=== PATIENT | female | born 1970 | race Caucasian/White ===

== ENCOUNTER 2024-08-12 21:51 | Observation (INO) | payer OTHER, SELFPAY ==
[2024-08-12 21:55] VITALS: BP 150/74; PULSE 73; RESP 18; TEMP 36.8; O2SAT 99; BMI 24.5
[2024-08-12 23:15] LABS: Absolute Lymphocyte Count 2.14 X10^3/uL (0.83-4.51); Absolute Neutrophil Count 11.4 X10^3/uL (2.0-7.7); Basophil# 0.04 X10^3/uL; Basophil% 0.3 % (0-1); Eosinophils% 0.7 % (0-5); Hemoglobin 12.9 g/dL (12.0-15.0); Lymphocyte # 2.14 X10^3/ul (0.83-4.51); Lymphocyte % 14.8 % (19-41); Mean Corp Hgb Conc 33.1 g/dL (32-36); Mean Corpuscular Hgb 29.5 pg (27.0-32.0); Monocyte# 0.74 X10^3/uL; Monocyte% 5.1 % (0-10); NRBC Flagged by Analyzer 0 % (0-5); Neutrophil # 11.38 X10^3/uL (2.7-7.7); Neutrophil % 78.7 % (47-70); Platelet Count 300 K/mm3 (150-450); RBC Distribution Width CV 12.3 % (11.6-14.6); RBC Distribution Width SD 40.5 fl (35.1-43.9); Red Blood Count 4.38 M/mm3 (4.2-5.4); White Blood Count 14.5 K/mm3 (4.4-11.0)
[2024-08-12 23:43] LABS: AST(SGOT) 17 U/L (15-37); Alanine Aminotransfer ALT/SGPT 40 U/L (13-56); Albumin, Serum 3.8 g/dL (3.2-5.0); Alkaline Phosphatase 92 U/L (45-117); Anion Gap 6 (5-15); BUN 18 mg/dL (7-18); BUN/Creat Ratio 20.3 RATIO (10-20); Calcium,Total 9.2 mg/dL (8.5-10.1); Chloride 106 mmol/L (98-107); Creatinine, Serum 0.89 mg/dL (0.55-1.02); EST Glomerular Filtration Rate 70 mL/min (>60); Est Glom Filt Rate - Afr Amer 85 mL/min (>60); Estimated Creatinine Clearance 60.95 ml/min; Glucose 135 mg/dL (74-106); Potassium 3.7 mmol/L (3.5-5.1); Protein, Total 7.8 g/dL (6.4-8.2); Sodium Level 141 mmol/L (136-145)
--- NOTE | 2024-08-12 23:48 | CT_ITS ---
PROCEDURE: ABDOMEN/PELVIS W IV CONT ONLY REASON FOR EXAM: 54-year-old female, right upper quadrant pain around the sides and back. TECHNIQUE: Abdomen and pelvis CT with intravenous contrast. No oral contrast. IV CONTRAST: Isovue-300 COMPARISON: None. FINDINGS: Lung bases: The heart is normal in size. No focal hepatic mass in the bibasilar lungs. Liver: The liver is normal in size without focal hepatic mass. The major portal veins are patent. Minimal biliary ductal dilation. Gallbladder: Cholelithiasis. The gallbladder is distended with mild gallbladder wall thickening. No pericholecystic fluid. Spleen: Unremarkable. Pancreas: Unremarkable. Adrenals: Unremarkable. Kidneys: No hydronephrosis or nephrolithiasis. Bladder: The urinary bladder is distended and unremarkable. Reproductive Organs: Unremarkable. Bowel: The bowel loops are normal in caliber. No ascites or pneumoperitoneum. Normal appendix. Lymph nodes: No suspicious lymph node enlargement. Vasculature: Major vascular structures are unremarkable. Bones: Unremarkable. CT/Abdomen/Pelvis W IV Cont ONLY IMPRESSION: Findings of acute cholecystitis. One or more dose reduction techniques were used (e.g., Automated exposure contr ol, adjustment of the mA and/or kV according to patient size, use of iterative reconstruction technique). Reading Location: [id number]
[2024-08-13] VITALS (18 sets, daily range): BP systolic 96–147; BP diastolic 62–86; PULSE 70–85; RESP 12–18; TEMP 36–36.9; O2SAT 95–99; BMI 23.8
[2024-08-13 00:03] LABS: Bacteria 0 SEEN /hpf (None Seen); Mucous, Urine 0 SEEN /hpf (<or=2+); Squamous Epithelial Cells - UA 0 SEEN /hpf (5-10); White Blood Cells 0 SEEN /hpf (0-5)
[2024-08-13 00:07] LABS: Color, Urine Yellow (Yellow); Glucose, Dipstick Normal (Normal); Ketone-Dipstick Negative (Negative); Leukocyte Esterase-Dipstick 25 /ul (Negative); Nitrite-Dipstick Negative (Negative); Occult Blood-Urine Negative /ul (Negative); Protein-Dipstick 15 mg/dl (Negative); Urine Bilirubin Dipstick Negative (Negative); Urine Clarity Clear (Clear); Urine Urobilinogen Normal (Normal)
[2024-08-13] MEDS: 0.9% Normal Saline (1000mL) 1,000 ML 999 ML IV (00:10)
[2024-08-13 00:17] LABS: Lipase 73 U/L (73-393); Troponin-I HS < 3 pg/mL (3.0-54.0)
[2024-08-13 00:43] LABS: Red Blood Cells-Urine 0 SEEN /hpf (0-5)
--- NOTE | 2024-08-13 02:19 | US_ITS ---
PROCEDURE: ABDOMEN LIMITED REASON FOR EXAM: Acute cholecystitis. COMPARISON: Comparison is made with prior ultrasound done earlier in the day. FINDINGS: Liver: Grossly normal size and echotexture. It measures 17.5 cm. Gallbladder: A solitary gallstone is seen measuring 1.8 cm. There is evidence of pericholecystic fluid. Mild thickening of the gallbladder wall at 4 mm. Common bile duct: Normal measuring 4 mm.. Pancreas: Visualized portions are sonographically unremarkable. Visualized portions of the right kidney are unremarkable. No right upper quadrant ascites. US/Abdomen Limited IMPRESSION: Solitary gallstone. Pericholecystic fluid. Mild gallbladder wall thickening. Findings in keeping with acute cholecystitis. Reading Location: [facility]
[2024-08-13] MEDS: Piperacil/Tazobactam 3.375 GM in 0.9% Normal Saline (50mL MB+) 50 ML IV ×2 (02:40→14:25)
--- NOTE | 2024-08-13 04:40 | EDS_ITS ---
HPI History of Present Illness Chief Complaint: Abd Pain Informant: patient and spouse/S.O. Narrative Narrative: Patient is a 54-year-old female with no significant past medical history. She states that today she ate dinner with her in-laws and . She states that they had chili. She reports that 1 to 2 hours after eating she noticed that she was developing upper abdominal pain. She states the pain then began to wrap around her abdomen towards her back and radiate up into her chest. She states that the pain was increasing in severity and she did not know if this could be related to her intestines or gallbladder or her heart and therefore she presents to the hospital for evaluation. Patient does state that after arriving to the ER and waiting for evaluation her pain has not resolved but has significantly improved. PFSH PFS Medical History Hx of ovarian cyst Home Medications ?Medication ?Instructions ?Recorded ?Last Taken ?Type NK 08/13/24 Unknown History Allergy/AdvReac Type Severity Reaction Status Date / Time amoxicillin Allergy PT UNSURE Verified 08/12/24 21:53 OF REACTION Sulfa (Sulfonamide Allergy Hives Verified 08/12/24 21:53 Antibiotics) Social History Smoking Status: Never smoker ROS ROS ED Constitutional Constitutional ED: Denies chills or fever(s) Eyes Eyes: Denies change in vision ENT ENT ED: Denies sore throat Cardiovascular Cardiovascular: Reports chest pain Respiratory/Chest Respiratory/Chest: Denies cough or dyspnea Gastrointestinal Gastrointestinal: Reports abdominal pain and nausea; Denies diarrhea or vomiting Genitourinary Genitourinary ED: Denies dysuria or hematuria Musculoskeletal Musculoskeletal: Reports back pain Integumentary Denies rash Neurologic Neurologic: Denies headache(s) Hematologic/Lymphatic Hematologic/Lymphatic: Denies easy bleeding or easy bruising EXAM Physical Exam Const Vital Signs: 08/12/24 21:55 08/13/24 01:00 08/13/24 03:00 Temperature 98.2 F Temperature Source Oral Pulse Rate 73 76 75 Respiratory Rate 18 18 16 Blood Pressure 150/74 H 125/76 H 146/62 H Blood Pressure Mean 99 92 90 Pulse Ox 99 96 97 Oxygen Delivery Method Room Air Room Air Room Air 08/13/24 05:00 08/13/24 07:00 Temperature Temperature Source Pulse Rate 72 74 Respiratory Rate 18 18 Blood Pressure 119/84 H 123/86 H Blood Pressure Mean 95 98 Pulse Ox 99 98 Oxygen Delivery Method Room Air Room Air Positive well nourished and well developed General Appearance ED: well developed; Negative for pallor HEENT Reports moist mucous membranes HEENT Narrative: No tongue or lip swelling no oral lesions no airway edema or compromise No secondary findings in the posterior pharynx to suggest infection Eyes PERRL and EOMs intact bilaterally General Eye ED: Negative for scleral icterus Neck supple Neck Narrative: No nuchal rigidity or meningeal signs Chest Wall palpation of chest normal Resp normal respiratory effort and clear to auscultation bilaterally Cardio regular rate and regular rhythm Rate: other Other Details: Heart is regular rate and rhythm without murmurs rubs or gallops Radial and carotid pulses are equal and symmetric GI non-distended and no masses GI Narrative: Abdomen is soft and nondistended with normal active bowel sounds Patient has pain on palpation in the right upper quadrant with slight voluntary guarding but overall negative Aguilar sign No pulsatile mass or fluid wave. Auscultation: normoactive bowel sounds Palpation: soft Back/Spine no CVA tenderness Extremity normal to inspection Neuro oriented x3, CN's II-XII intact bilaterally and no sensory deficits noted Sensorium / Orientation: alert Motor Exam: strength 5/5 throughout Psych mental status grossly normal Skin no rashes or lesions noted General Skin Exam: Negative for jaundice or pallor MDM MDM MDM Narrative Medical decision making narrative: Patient arrived to the ER slightly hypertensive but otherwise with stable vitals. She reported upper abdominal pain that began after eating and has since spontaneously improved. However with the upper abdominal pain after eating there is concern this could be biliary colic versus acute cholecystitis versus acute pancreatitis. With patient reporting pain radiating to the chest there is concern for acute coronary syndrome. Patient could also have atypical presentation for UTI/pyelonephritis or kidney stone. Secondary to this basic labs were obtained with urine sample. The urine showed no sign of infection going against UTI/pyelonephritis and no blood going against kidney stone. The patient's liver enzymes are normal going against biliary colic and lipase normal going against acute pancreatitis. However the patient's white count is elevated at 14.5 and with pain and guarding in the right upper quadrant she may have acute cholecystitis. Secondary to his a CT scan with IV contrast was obtained. CT scan showed gallstones with gallbladder wall thickening concerning for acute cholecystitis. Secondary to this read the case was discussed with general surgery on-call Dr. Todd. She recommends that as patient is still having pain on physical exam and has a white count that she be given a dose of Zosyn and held in the ER until an ultrasound can be obtained for a better image. The patient's right upper quadrant ultrasound did reveal a solitary gallstone at 1.8 cm with this there is surrounding pericholecystic fluid and mild dilation of the gallbladder duct at 4 mm and these findings correlate with the CT scan and show changes concerning for acute cholecystitis. At rest the patient reports a pain value of 1-2 but she does have voluntary guarding with palpation in the right upper quadrant. Secondary to the ultrasound showing changes consistent with acute cholecystitis Dr. Todd was contacted once again and she agrees that with persistent pain and CT and ultrasound findings showing acute cholecystitis as well as her leukocytosis that she be admitted to her service for further care History & Record Review Discussion w/independent historian: Patient and Significant other Lab Data Attestation: I reviewed the patient's lab results. Labs: Laboratory Results - last 24 hr 08/12/24 08/13/24 23:10 00:01 WBC 14.5 H RBC 4.38 Hgb 12.9 Hct 39.0 MCV 89.0 MCH 29.5 MCHC 33.1 RDW Std Deviation 40.5 RDW Coeff of Jody 12.3 Plt Count 300 MPV 10.0 Immature Gran % (Auto) 0.400 Neut % (Auto) 78.7 H Lymph % (Auto) 14.8 L [place] % (Auto) 5.1 Eos % (Auto) 0.7 Baso % (Auto) 0.3 Absolute Neuts (auto) 11.4 H Absolute Lymphs (auto) 2.14 Nucleated RBC % 0 Sodium 141 Potassium 3.7 Chloride 106 Carbon Dioxide 29.0 Anion Gap 6 BUN 18 Creatinine 0.89 Estim Creat Clear Calc 60.95 Est GFR (MDRD) Af Amer 85 Est GFR (MDRD) Non-Af 70 BUN/Creatinine Ratio 20.3 H Glucose 135 H Calcium 9.2 Total Bilirubin 0.20 AST 17 ALT 40 Alkaline Phosphatase 92 Troponin I High Sens < 3 L Total Protein 7.8 Albumin 3.8 Globulin 4.0 Albumin/Globulin Ratio 1.0 Lipase 73 Urine Color Yellow Urine Clarity Clear Urine pH 6.0 Ur Specific [place] 1.020 Urine Protein 15 H Urine Glucose (UA) Normal Urine Ketones Negative Urine Occult Blood Negative Urine Nitrite Negative Urine Bilirubin Negative Urine Urobilinogen Normal Ur Leukocyte Esterase 25 H Urine RBC 0 SEEN Urine WBC 0 SEEN Ur Squamous Epith Cells 0 SEEN Urine Bacteria 0 SEEN Urine Mucus 0 SEEN Radiography Diagnostic Testing: Clinical Impression(s) from Imaging Studies Abdomen/Pelvis CT 08/12/24 23:48 IMPRESSION: Findings of acute cholecystitis. One or more dose reduction techniques were used (e.g., Automated exposure control, adjustment of the mA and/or kV according to patient size, use of iterative reconstruction technique). Reading Location: [id number] Abdomen Ultrasound 08/13/24 02:19 IMPRESSION: Solitary gallstone. Pericholecystic fluid. Mild gallbladder wall thickening. Findings in keeping with acute cholecystitis. Reading Location: [id number] Management Discussion w/another healthcare provider: Change Management Facilitator Discharge Plan Triage Chief Complaint: Abd Pain ED Provider: James Melissa Dx/Rx/DC Orders Clinical Impression: Cholelithiasis, Leukocytosis, Acute cholecystitis Prescriptions: No Action NK Primary Care Provider: Care Physician,No Primary Referrals: Care Physician,No Primary [Primary Care Provider] - Print Language: Macedonian Disposition Disposition: [facility]
--- NOTE | 2024-08-13 09:02 | HP.PCM_ITS ---
HPI - General General Date of Admission: 08/13/24 Date of Service: 08/13/24 Chief Complaint: Right upper quadrant pain HPI Narrative LESLYE PINEDA, is a 54 F who presents with a 1 day acute onset of abdominal pain. Patient was at dinner last night with her in-laws and her . She had a bowel of chili. She notes fullness and bloating right after eating along with some pain. She noted a little nausea associated with the abdominal pain, which intensified approximately 1 hour later. She notes no other sick contacts or no one else in her green party that became sick from the food at the restaurant. She notes the pain continued to become intense and localized more in the epigastric and right upper quadrant and into her back. She was questioning if this was a heart attack. Patient notes her mother and brother have both had their gallbladder removed. She denies any previous gallbladder issues. She notes only abdominal surgery was an ovarian cyst removal. She denies any cardiac or pulmonary history. She denies any side effects or complications from anesthesia noted. CT scan of the ab/pel was obtained and demonstrated acute cholecystitis. RUQ u/s demonstrated solitary gallstone. Pericholecystic fluid. Mild gallbladder wall thickening. Findings keeping with acute cholecystitis. Labs notable for WBC 14.5 with left shift of 78.7. Remaining labs are unremarkable. [facility] Medical History Hx of ovarian cyst Home Medications ?Medication ?Instructions ?Recorded ?Last Taken ?Type NK 08/13/24 Unknown History Allergy/AdvReac Type Severity Reaction Status Date / Time amoxicillin Allergy PT UNSURE Verified 08/12/24 21:53 OF REACTION Sulfa (Sulfonamide Allergy Hives Verified 08/12/24 21:53 Antibiotics) Social History Smoking Status: Never smoker ROS Constitutional Constitutional: Reports systems reviewed and no addt'l complaints, except as documented Eyes Eyes: Reports systems reviewed and no addt'l complaints, except as documented ENT HEENT: Reports systems reviewed and no addt'l complaints, except as documented Cardiovascular Cardiovascular: Reports systems reviewed and no addt'l complaints, except as documented Respiratory/Chest Respiratory/Chest: Reports systems reviewed and no addt'l complaints, except as documented Gastrointestinal Gastrointestinal: Reports systems reviewed and no addt'l complaints, except as documented Genitourinary Genitourinary: Reports systems reviewed and no addt'l complaints, except as documented Musculoskeletal Musculoskeletal: Reports systems reviewed and no addt'l complaints, except as documented Integumentary Integumentary: Reports systems reviewed and no addt'l complaints, except as documented Neurologic Neurologic: Reports systems reviewed and no addt'l complaints, except as documented Psychiatric Psychiatric: Reports systems reviewed and no addt'l complaints, except as documented Endocrine Endocrinology: Reports systems reviewed and no addt'l complaints, except as documented Hematologic/Lymphatic Hematologic/Lymphatic: Reports systems reviewed and no addt'l complaints, except as documented Allergic/Immunologic Allergic/Immunologic: Reports systems reviewed and no addt'l complaints, except as documented Vital Signs Vital Signs Vital Signs: 08/12/24 21:55 08/13/24 01:00 08/13/24 03:00 Temperature 98.2 F Temperature Source Oral Pulse Rate 73 76 75 Respiratory Rate 18 18 16 Blood Pressure 150/74 H 125/76 H 146/62 H Blood Pressure Mean 99 92 90 Pulse Ox 99 96 97 Oxygen Delivery Method Room Air Room Air Room Air 08/13/24 05:00 08/13/24 07:00 08/13/24 07:56 Temperature 98.2 F Temperature Source Pulse Rate 72 74 78 Respiratory Rate 18 18 12 Blood Pressure 119/84 H 123/86 H 123/86 H Blood Pressure Mean 95 98 98 Pulse Ox 99 98 99 Oxygen Delivery Method Room Air Room Air 08/13/24 08:46 Temperature Temperature Source Pulse Rate 85 Respiratory Rate Blood Pressure 147/62 H Blood Pressure Mean 90 Pulse Ox 95 Oxygen Delivery Method Room Air Weight Weight: 143 lb 4.8 oz Body Mass Index (BMI) 24.5 Physical Exam Const alert, oriented x3 and no apparent distress HEENT normocephalic and head/scalp atraumatic Eyes PERRL Neck full ROM Resp normal respiratory effort and clear to auscultation bilaterally Cardio regular rate and regular rhythm GI GI Narrative: Abdomen- soft, slight tenderness in the RUQ. Negative Aguilar's sign no CVA tenderness Back/Spine no CVA tenderness Extremity normal to inspection Skin no rashes or lesions noted Neuro no focal motor deficits and no sensory deficits noted Psych mental status grossly normal, thought process normal, cooperative, affect normal and speech normal Results Lab / Micro Data 08/12/24 23:10 08/12/24 23:10 Labs: Laboratory Results - last 24 hr 08/12/24 23:10: WBC 14.5 H, RBC 4.38, Hgb 12.9, Hct 39.0, MCV 89.0, MCH 29.5, MCHC 33.1, RDW Std Deviation 40.5, RDW Coeff of Jody 12.3, Plt Count 300, MPV 10.0, Immature Gran % (Auto) 0.400, Neut % (Auto) 78.7 H, Lymph % (Auto) 14.8 L, [place] % (Auto) 5.1, Eos % (Auto) 0.7, Baso % (Auto) 0.3, Absolute Neuts (auto) 11.4 H, Absolute Lymphs (auto) 2.14, Nucleated RBC % 0, Sodium 141, Potassium 3.7, Chloride 106, Carbon Dioxide 29.0, Anion Gap 6, BUN 18, Creatinine 0.89, Estim Creat Clear Calc 60.95, Est GFR (MDRD) Af Amer 85, Est GFR (MDRD) Non-Af 70, BUN/Creatinine Ratio 20.3 H, Glucose 135 H, Calcium 9.2, Total Bilirubin 0.20, AST 17, ALT 40, Alkaline Phosphatase 92, Troponin I High Sens < 3 L, Total Protein 7.8, Albumin 3.8, Globulin 4.0, Albumin/Globulin Ratio 1.0, Lipase 73 08/13/24 00:01: Urine Color Yellow, Urine Clarity Clear, Urine pH 6.0, Ur Specific [place] 1.020, Urine Protein 15 H, Urine Glucose (UA) Normal, Urine Ketones Negative, Urine Occult Blood Negative, Urine Nitrite Negative, Urine Bilirubin Negative, Urine Urobilinogen Normal, Ur Leukocyte Esterase 25 H, Urine RBC 0 SEEN, Urine WBC 0 SEEN, Ur Squamous Epith Cells 0 SEEN, Urine Bacteria 0 SEEN, Urine Mucus 0 SEEN Imaging Radiology Impression Abdomen/Pelvis CT 08/12/24 23:48 IMPRESSION: Findings of acute cholecystitis. One or more dose reduction techniques were used (e.g., Automated exposure control, adjustment of the mA and/or kV according to patient size, use of iterative reconstruction technique). Reading Location: [facility] Abdomen Ultrasound 08/13/24 02:19 IMPRESSION: Solitary gallstone. Pericholecystic fluid. Mild gallbladder wall thickening. Findings in keeping with acute cholecystitis. Reading Location: [id number] Assessment & Plan Assessment/Plan (1) Acute cholecystitis: (2) Leukocytosis: (3) Cholelithiasis: PLAN: Plan I am seeing this patient in conjunction with Dr. Todd. She will independently evaluate this patient. Patient presents with 1 day history of acute onset of abdominal pain, which eventually localized in the RUQ and into the back. She has an elevated WBC. Her RUQ u/s does demonstrate acute cholecystitis. We will plan to admit patient to the floor for observation, place NPO, obtain a pre-op EKG. Dr. Todd will plan to perform a laparoscopic cholecystectomy with intraoperative cholangiogram. Procedure details, risks and benefits have been explained. Patient and her have had the opportunity to ask and have questions answered. Patient verbally understands and agrees with the plan. Thank you for allowing us to participate in this patient's care. Charges/Coding Visit Charges OBSV E&M: 12846 Observ/hosp same date L2
--- NOTE | 2024-08-13 09:07 | RAD_ITS ---
PROCEDURE: CHOLANGIOGRAM/ O R,INITIAL REASON FOR EXAM: Laparoscopic cholecystectomy. TECHNIQUE: An intraoperative cholangiogram was performed by the surgeon. Imaging was provided. COMPARISON: None FINDINGS: The visualized intra and extrahepatic biliary ducts are unremarkable. No evidence of retained calculus. Free flow of contrast into the duodenum. RAD/Cholangiogram/ O R,Initial IMPRESSION: Unremarkable intra operative cholangiogram. Reading Location: [id number]
[2024-08-13] MEDS: 0.9% Normal Saline (1000mL) 1,000 ML 100 ML IV (10:24)
[2024-08-13] MEDS: 0.9% Saline Lock 10 ML Syringe IV (10:25)
--- NOTE | 2024-08-13 10:54 | EKG12_ITS ---
Test Reason : PREOP Blood Pressure : */* mmHG Vent. Rate : 68 BPM Atrial Rate : 68 BPM P-R Int : 104 ms QRS Dur : 72 ms QT Int : 408 ms P-R-T Axes : 77 34 51 degrees QTcB Int : 433 ms Sinus rhythm with short WA Nonspecific ST abnormality MINOR Borderline Reconfirmed by Hamzah Cordova ([id number]), makeup editor KIMBERLEE BENNETT ([id number]) on 08/17/2024 10:41:22 AM Referred By: KARISSA Confirmed By: Hamzah Cordova
--- NOTE | 2024-08-13 12:39 | PRE.ANES_ITS ---
ASA Classification* ASA Classification ASA Classification: 2 Assessment & Plan Anesthesia* Anesthesia Assessment Anesthesia Assessment: Discussed sedation and/or anesthesia options, risks, benefits, and alternatives with patient/parents/legal guardian/POA. Questions invited. The patient/parents/legal guardian/POA seems to understand and agrees to proceed with anesthesia plan. Reviewed the physical assessment, medical history, allergy history and patient home medications list prior to surgery/procedure/anesthetic and documented any changes. Performed airway and anesthesia risk assessments. Anesthesia Type Anesthesia Type: General History Source History Obtained from:: Patient, Chart and Significant Other Anesthesia Focused Assessment* Temperature: 98.1 F Pulse Rate: 73 Blood Pressure: 120/62 Respiratory Rate: 16 Pulse Ox: 99 Oxygen Delivery Method: Room Air Airway Assessment Mouth opens: >3 cm Mallampati Score: II Teeth Condition: Intact, Caps/Crowns and Chipped/Broken (chipped lower incisor) Neck Range of motion (ROM): Full ROM Focused Labs Anesthesia Preop lab: CBC WBC 14.5 K/mm3 (4.4-11.0) H 08/12/24 23:10 5 RBC 4.38 M/mm3 (4.2-5.4) 08/12/24 23:10 08/12/24 Hgb 12.9 g/dL (12.0-15.0) 08/12/24 23:10 08/12/24 Hct 39.0 % (37-47) 08/12/24 23:10 08/12/24 Plt Count 300 K/mm3 (150-450) 08/12/24 23:10 08/12/24 CHEMISTRY Potassium 3.7 mmol/L (3.5-5.1) 08/12/24 23:10 08/12/24 Sodium 141 mmol/L (136-145) 08/12/24 23:10 08/12/24 BUN 18 mg/dL (7-18) 08/12/24 23:10 08/12/24 Creatinine 0.89 mg/dL (0.55-1.02) 08/12/24 23:10 08/12/24 Glucose 135 mg/dL (74-106) H 08/12/24 23:10 08/12/24 COAG Pre-Assessment Diagnosis/Proposed Procedure Planned Operative Procedure(s): lap ethan Anesthesia History Anesthesia History - business development agent: Anesthesia History - business development agent Hx Hospitalization Any Problems With Anesthesia No 08/13/24 11:37 Cholinesterase deficiency No 08/13/24 11:37 You/Your Family Experience No 08/13/24 11:37 fever (hyperthermia) with Relationship Recent Exposure to Contagious No 08/13/24 11:37 Disease Does patient have nerve No 08/13/24 11:37 stimulator Patient instructed to have device shut off --Does patient have Pacemaker No 08/13/24 11:37 or ICD? When Was Last Pacemaker Check QUESTION #4 FULL TEXT: You/Your Family Experience fever (hyperthermia) with Anesthesia Last Oral Intake Last Oral intake: Last Oral Intake NPO since 00:00 08/13/24 11:37 Meds taken in AM with sips of No 08/13/24 11:37 water? Meds patient instructed to take am of surgery PONV PONV - business development agent: PONV - business development agent Female HX of Motion Sickness HX of N/V After Surgery Non-Smoker Duration of Surgery greater than 60 minutes Number of Risk Factors PONV Score Height & Weight Height & Weight: Anesthesia: Height & Weight Height 5 ft 4 in 08/13/24 11:37 Weight: 63.049 kg 08/13/24 11:37 Body Mass Index (BMI) 23.8 08/13/24 11:37 Respiratory Assessment Respiratory Assessment - business development agent: Respiratory Tract Infection Hx - business development agent Hx Respiratory Tract Infection No 08/13/24 11:37 STOP Sleep Apnea STOP Sleep Apnea - business development agent: STOP Sleep Apnea - business development agent Hx Hypertension No 08/13/24 09:57 Hx Sleep Apnea No 08/13/24 09:57 CPAP BIPAP Do you snore loudly (louder No 08/13/24 09:57 than talking or can be heard Do you often feel tired/ No 08/13/24 09:57 fatigued/ sleepy during daytime? Has anyone observed you stop No 08/13/24 09:57 breathing during sleep? STOP Results Negative 08/13/24 09:57 QUESTION #5 FULL TEXT : Do you snore loudly (louder than talking or can be heard through closed doors)? Tobacco Use History Tobacco Use History - business development agent: Tobacco Use History - business development agent Tobacco Use Smoking Status Never smoker 08/13/24 09:57 Hx Tobacco Use No 08/13/24 09:57 Years Smoking Packs Smoked per Day Smoking Cessation Date was within the last 15 years Hx Smoking Cessation Date Hx Smoking Cessation Counseling Hematologic Medial History Hematologic Hx - business development agent: Hematologic Medical Hx - net developer architect Hx of Blood Transfusion No 08/13/24 09:57 Hx of Transfusion in last 3 No 08/13/24 09:57 Months Date of Last Transfusion (if within last 3 months) Ever experience any problems No 08/13/24 09:57 with transfusion(s)? Specify any problems Hx of Preganancy in last 3 No 08/13/24 09:57 Months Nurse Filling Out Transfusion EBOOTHE 08/13/24 09:57 & Questions: Date: 08/13/24 08/13/24 09:57 Time: 10:00 08/13/24 09:57 Patient unable to answer at this time (ie. confused, unrespo /Reproduction History /Reproductive History - business development agent: /Reproductive Hx- business development agent Hx Now No 08/13/24 11:37 Gestational Age (in weeks): EDC: Hx Hx Para Hx Section SAB No 08/13/24 11:37 Active Medications Active Medications: Current Medications Generic Name Dose Route Start Last Admin Trade Name Freq PRN Reason Stop Dose Admin Acetaminophen 650 mg 08/13/24 09:43 Acetaminophen 325 Mg Tablet PO Q6H PRN PRN Pain 1-10 Or Fever >100.7 Docusate Sodium 100 mg 08/13/24 10:00 08/13/24 10:09 Docusate Sodium 100 Mg Capsule PO Not Given DAILY NAN Sodium Chloride 1,000 mls @ 100 mls/hr 08/13/24 09:43 08/13/24 12:10 IV 08/14/24 05:42 0 mls/hr .Q10H NAN Infusion Protocol Piperacillin Sod/Tazobactam 50 mls @ 12.5 mls/hr 08/13/24 14:00 Sod 3.375 gm/ Sodium Chloride IV Q8 NAN Sodium Chloride 100 mls @ 15 mls/hr 08/13/24 10:07 IV .Q6H40M PRN Saline Flush Sodium Chloride 100 mls @ 15 mls/hr 08/13/24 10:07 IV .Q6H40M PRN Additional IVPB Infusion Morphine Sulfate 2 - 4 mg 08/13/24 09:43 Morphine 2 Mg/Ml Syringe IV Q3H PRN PRN Pain Score 6-10 Morphine Sulfate 2 - 4 mg 08/13/24 09:50 Morphine 4 Mg/Ml Syringe IV Q3H PRN PRN Pain Score 6-10 Ondansetron HCl 4 mg 08/13/24 09:43 Ondansetron 4 Mg/2 Ml Vial IV Q8H PRN PRN NAUSEA/VOMITING Oxycodone HCl 5 mg 08/13/24 09:43 Oxycodone 5 Mg Tablet PO Q4H PRN PRN Pain Score 4-10 Sodium Chloride 10 - 40 ml 08/13/24 10:07 08/13/24 10:25 0.9% Saline Lock 10 Ml Syringe IV 10 ml UD PRN Administration SALINE FLUSH PFSH Medical History Hx of ovarian cyst Home Medications ?Medication ?Instructions ?Recorded ?Last Taken ?Type NK 08/13/24 Unknown History Allergy/AdvReac Type Severity Reaction Status Date / Time amoxicillin Allergy PT UNSURE Verified 08/12/24 21:53 OF REACTION Sulfa (Sulfonamide Allergy Hives Verified 08/12/24 21:53 Antibiotics) Social History Smoking Status: Never smoker Review of Systems (Anesthesia) ROS Narrative System reviewed and no additional complaints, except as documented.
[2024-08-13] MEDS: 0.9% Normal Saline (1000mL) 1,000 ML 15 ML IV (12:50)
--- NOTE | 2024-08-13 14:30 | GALL_PTH ---
PATIENT: LESLYE PINEDA LOC: MS3 U#:[id number] AGE/SX: 54/F ROOM: [facility] [place] RE08/13/[address]: Dr. Jenniffer Todd MD : 1970 BED: 1 DIS: 08/14/2024 SPEC #: [id number] RECD: 08/14/24 10:08 STATUS: NICK JOSE CARLOS #: [id number] WALDO: 08/13/24 14:[address]: Jenniffer Todd DEPT: SURGICAL PATHOLOGY RECD BY: Jeane Morales ENTERED: 08/14/24 10:37 SP TYPE: DANIEL ESCOBAR DR: No Primary Care Phys Tissues: Gallbladder, NOS Procedures: Special Stain Group I Surgery Specimen Level III Alcian Blue/PAS (control) HEADER OPERATION: Laparoscopic, cholecystectomy with IOC PRE-OP DIAGNOSIS: Acute cholecystitis, leukocytosis, cholelithiasis TISSUE SUBMITTED: Gallbladder MICROSCOPIC DIAGNOSIS Gallbladder, cholecystectomy: Chronic cholecystitis and cholelithiasis. Focal intestinal metaplasia (goblet cell metaplasia). See comment. 08/17/2024 COMMENT Alcian blue/PAS stain with matched control is used in the evaluation of the specimen. MICROSCOPIC DESCRIPTION Slides are reviewed. GROSS DESCRIPTION Received is one container labeled with the patient's name and designated gallbladder. The specimen consists of a gallbladder measuring 8.5 cm in length and up to 4 cm in diameter. The external surface is pink-dominguez, smooth and glistening for the most part. Focally it is granular, hemorrhagic and contains cautery artifact. The gallbladder contains green-yellow bile and two stones, one yellow mulberry measuring 0.2cm in greatest dimension and second ovoid green measuring 2 x 1.2 x 1cm. The mucosa is bile-stained and without any mass lesions. The gallbladder wall measures up to 0.2 cm in thickness. Music Typographer sections from the gallbladder and the cystic duct are submitted in one cassette. / SJ: 08/14/2024 TC:3 CPT: 44016,52117
[2024-08-13] MEDS: Bupivacaine Mpf 0.5% 30 ML VIAL (15:20)
--- NOTE | 2024-08-13 15:21 | OP.PCM_ITS ---
Operative Report (Standard) Operative Information Date of Procedure: 08/13/24 Pre-Operative Diagnosis: Acute cholecystitis, cholelithiasis Post-Operative Diagnosis: Same Surgery/Procedure Performed: Laparoscopic cholecystectomy with cholangiograms local bulk driver: Yes Student Accounts Coordinator: Robert Chakraborty Tasks completed by corporate law assistant: Opening & closing and Retracting Type of Anesthesia: General/Supplemental RN Documented Start/Stop Times: Operation Date: 08/13/24 14:30 Case Time Into Pre-Op 08/13/24 12:18 Out of Pre-Op 08/13/24 14:14 Anesthesia Start 08/13/24 14:16 Into Room 08/13/24 14:16 Procedure Start 08/13/24 14:26 Procedure End 08/13/24 15:24 Procedure Start Time: 14: Procedure Stop Time: 15:24 Select all DRAINS/GRAFTS/IMPLANTS that apply: None Special Medications: Zosyn 3.35 g IV every 8 hours for acute cholecystitis on the floor Estimated Blood Loss: <20 cc Specimen collected: Yes Description of specimen(s) removed: gallbladder Description of surgery: Indications: this is a 54 year-old female who developed abdominal pain and on workup was found to have cholelithiasis, acute cholecystitis, with a normal common bile duct. Laparoscopic cholecystectomy was elected. Description procedure: The patient was placed on operating table in supine position. A timeout was completed verifying correct patient, procedure, site, position and special equipment prior to beginning procedure. General Anesthesia was induced. The abdomen was prepped and draped in usual sterile fashion. An incision was made in the natural skin line above the umbilicus. The fascia was elevated and incised. The peritoneum was elevated and incised. Entry into the peritoneum was confirmed visually and no bowel was noted in the vicinity of the incision. Tobar trocar was placed. The abdomen was insufflated with carbon dioxide to a pressure of 12-15 mmHg. Patient tolerated insufflation well. The laparoscope was then inserted and abdomen inspected. No injuries from initial trocar placement were noted. Additional trochars were then inserted in the following locations 5 mm trocar in the epigastrium and 2 more 5 mm trochars along the right costal margin. The abdomen was inspected no abnormalities were found. The table is placed in reverse Trendelenburg position with the right side up. The dome of the gallbladder was grasped with atraumatic grasper passed through the lateral port and retracted over the dome of the liver. Infundibulum was then grasped with atraumatic grasper through the midclavicular port and retracted to the right lower quadrant. This maneuver exposed Calot's triangle. The peritoneum overlying the gallbladder infundibulum was then incised and cystic duct and artery identified and circumferentially dissected. Weinstein catheter was used for cholangiograms. The cholangiogram showed good filling of the common bile duct into the duodenum with no filling defects, good filling of the right and left bile ducts as well. The cystic duct and artery were then doubly clipped and divided close to the gallbladder. The gallbladder then dissected from its peritoneal attachments by electrocautery. Hemostasis was checked and the gallbladder and contained stones were removed using the endoscopic retrieval bag through the umbilical port. The gallbladder is passed off table as specimen. The gallbladder fossa was irrigated with saline and hemostasis obtained. There is no evidence of bleeding from the gallbladder fossa or cystic artery leakage of bile from the cystic duct stump. Secondary trochars removed under direct vision. No bleeding was noted the trocar sites. The laparoscope was withdrawn and umbilical trocar removed. The abdomen was allowed to collapse. The fascia of the 12 mm trocar was closed with a [id number] 0 Vicryl suture. The skin was closed with sutures of 4-0 Monocryl and Steri-Strips. The patient was extubated. The patient tolerated procedure well and was taken to the postanesthesia care unit in stable condition. Surgical Findings: See operative report?normal cholangiograms Complications Complications: No
--- NOTE | 2024-08-13 15:25 | DCINST_ITS ---
Discharge Instructions Diet Discharge Diet: Light diet - advance as tolerated Activity Discharge Activity: May Not Drive (while taking narcotic pain medications.) May shower in (days): 1 Lifting Restrictions: no lifting >20 lbs x 2 wks, no strenuous exercise for 4 wks Dressing / Incision Call your doctor if your incision/area has: Continuous Slow Oozing, Sudden Increased Bleeding, Increased Pain/ Swelling, Increased Redness, Foul Smelling Discharge and Swelling at the incision site Call your doctor if you observe: Fever of 101 or Higher Remove Dressing in: 2 days Cleanse incision/area with: Soap & Water Additional Dressing/Incision Instructions:: Steri-Strips will fall off in 7 to 10 days, if they do not fall off okay to remove after 10 days. Follow Up Care Please Follow Up With: Jenniffer Todd MD When: Call the office for a follow-up appointment 2 weeks; after 5 PM and on the weekends call [phone] with any concerns. Test Results: Test results from this visit will be discussed in further detail at your follow- up appointment, if applicable. Discharge Plan Admission Admit Date/Time: 08/13/24 08:47 Attending Provider: Jenniffer Todd Primary Care Provider: Jefe Physician,Rosalee Primary Discharge Orders/Prescriptions Prescriptions: New oxycodone 5 mg capsule 5 mg PO Q6H PRN (Reason: pain) 3 Days Qty: 10 0RF Referrals / Follow Up: Care PhysicianRosalee Primary [Primary Care Provider] - Disposition Disposition (needs filled in before D/C Order can be placed): Home, Self Care
--- NOTE | 2024-08-13 15:33 | PCM.POST.ANE ---
Anesthesia: Postop Eval I Current Vital Signs Temperature: 96.8 F Pulse Rate: 80 Blood Pressure: 98/64 Respiratory Rate: 18 Pulse Ox: 99 Oxygen Delivery Method: Room Air Assessment Airway patent: Yes Spontaneous unlabored respirations: Yes Mental status: Awake nausea: No Vomiting: No Anesthesia Complication: No Fluid Hydration Crystalloid volume administer (ml): 800 Total IV fluid infused: 800 Progress Note Anesthesia document: Postop Eval 1 completed: Yes
--- NOTE | 2024-08-13 16:26 | POSTOPAN2_ITS ---
Anesthesia Postop Eval I Sum Postop Eval Completion status Anesthesia document: Postop Eval 1 completed: Yes Anesthesia Postop Eval I Summary Anesthesia Postop Eval I Summary: Anesthesia Postop Eval I: Assessment Summary Airway patent Yes 08/13/24 15:33 COUPON REDEMPTION [email or web address] Spontaneous unlabored Yes 08/13/24 15:33 COUPON REDEMPTION [email or web address] respirations Mental status Awake 08/13/24 15:33 COUPON REDEMPTION [email or web address] nausea No 08/13/24 15:33 COUPON REDEMPTION CLERK.[email or web address] Vomiting No 08/13/24 15:33 COUPON REDEMPTION CLERK.LI Anesthesia Postop Eval I: Fluid Summary Crystalloid volume administer 800 08/13/24 15:33 COUPON REDEMPTION CLERK.JCLI (ml) Colloids volume administered ( ml) Blood Product volume administered (ml) Total IV fluid infused 800 08/13/24 15:33 COUPON REDEMPTION CLERK.DEISY Anesthesia Postop Eval I: Summary Notes Anesthesia Complication No 08/13/24 15:33 COUPON REDEMPTION CLERK.HATTIELI Anesthesia Complication Comment: Post-operative progress note Anesthesia: Postop Eval II Evaluation Mental status: Awake and Calm Pain Level: 0 nausea: No Vomiting: No Complications Anesthesia Complication: No
--- NOTE | 2024-08-13 16:26 | PCM.POSTANE2 ---
Anesthesia Postop Eval I Sum Postop Eval Completion status Anesthesia document: Postop Eval 1 completed: Yes Anesthesia Postop Eval I Summary Anesthesia Postop Eval I Summary: Anesthesia Postop Eval I: Assessment Summary Airway patent Yes 08/13/24 15:33 [email or web address] [email or web address].[email or web address] Spontaneous unlabored Yes 08/13/24 15:33 BOOKKEEPING ASSISTANT.DEISY respirations Mental status Awake 08/13/24 15:33 [email or web address] ASSISTANT.JCLI nausea No 08/13/24 15:33 BOOKKEEPING ASSISTANT.JCLI Vomiting No 08/13/24 15:33 BOOKKEEPING ASSISTANT.LI Anesthesia Postop Eval I: Fluid Summary Crystalloid volume administer 800 08/13/24 15:33 BOOKKEEPING ASSISTANT.JCLI (ml) Colloids volume administered ( ml) Blood Product volume administered (ml) Total IV fluid infused 800 08/13/24 15:33 BOOKKEEPING ASSISTANT.DEISY Anesthesia Postop Eval I: Summary Notes Anesthesia Complication No 08/13/24 15:33 BOOKKEEPING ASSISTANT.HATTIELI Anesthesia Complication Comment: Post-operative progress note Anesthesia: Postop Eval II Evaluation Mental status: Awake and Calm Pain Level: 0 nausea: No Vomiting: No Complications Anesthesia Complication: No
[2024-08-13] MEDS: Ketorolac 15 MG/ML Vial IV (16:37)
[2024-08-13] MEDS: Acetaminophen 325 MG Tablet 650 MG PO (20:20)
[2024-08-13] MEDS: oxyCODONE 5 MG Tablet PO (20:22)
[2024-08-14] MEDS: 0.9% Normal Saline (1000mL) 1,000 ML 100 ML IV (00:51)
[2024-08-14] MEDS: Ketorolac 15 MG/ML Vial IV (01:07)
[2024-08-14 04:20] VITALS: BP 107/61; PULSE 69; RESP 16; TEMP 36.8; O2SAT 96
[2024-08-14 06:38] LABS: Absolute Lymphocyte Count 0.88 X10^3/uL (0.83-4.51); Absolute Neutrophil Count 9.4 X10^3/uL (2.0-7.7); Basophil# 0.01 X10^3/uL; Basophil% 0.1 % (0-1); Hematocrit 36.8 % (37-47); Lymphocyte # 0.88 X10^3/ul (0.83-4.51); Lymphocyte % 8.2 % (19-41); Mean Corp Hgb Conc 32.6 g/dL (32-36); Mean Corpuscular Hgb 29.4 pg (27.0-32.0); Mean Corpuscular Volume 90.2 fL (81-99); Mean Platelet Vol. 10.5 fl (6.2-12.0); Monocyte# 0.41 X10^3/uL; Monocyte% 3.8 % (0-10); NRBC Flagged by Analyzer 0 % (0-5); Neutrophil # 9.42 X10^3/uL (2.7-7.7); Neutrophil % 87.4 % (47-70); Platelet Count 293 K/mm3 (150-450); RBC Distribution Width CV 12.4 % (11.6-14.6); RBC Distribution Width SD 40.8 fl (35.1-43.9); Red Blood Count 4.08 M/mm3 (4.2-5.4); White Blood Count 10.8 K/mm3 (4.4-11.0)
[2024-08-14] MEDS: Acetaminophen 325 MG Tablet 650 MG PO (06:59)
[2024-08-14] MEDS: Docusate Sodium 100 MG Capsule PO (06:59)
[2024-08-14 08:20] VITALS: BP 122/68; PULSE 65; RESP 16; TEMP 36.6; O2SAT 98
[2024-08-14] MEDS: oxyCODONE 5 MG Tablet PO (08:30)
[2024-08-14 08:36] LABS: ALB/GLOB Ratio 0.9 RATIO (0.9-2.4); AST(SGOT) 46 U/L (15-37); Alanine Aminotransfer ALT/SGPT 72 U/L (13-56); Albumin, Serum 3.1 g/dL (3.2-5.0); Alkaline Phosphatase 89 U/L (45-117); Anion Gap 7 (5-15); BUN 13 mg/dL (7-18); BUN/Creat Ratio 17.8 RATIO (10-20); Calcium,Total 8.5 mg/dL (8.5-10.1); Chloride 112 mmol/L (98-107); Creatinine, Serum 0.73 mg/dL (0.55-1.02); EST Glomerular Filtration Rate 87 mL/min (>60); Est Glom Filt Rate - Afr Amer 106 mL/min (>60); Estimated Creatinine Clearance 74.31 ml/min; Globulin 3.6 g/dL (2.2-4.2); Glucose 124 mg/dL (74-106); Potassium 4.2 mmol/L (3.5-5.1); Protein, Total 6.7 g/dL (6.4-8.2); Sodium Level 141 mmol/L (136-145)
--- NOTE | 2024-08-14 08:45 | PCM.PN.SRG ---
Subjective Subjective Patient tolerating diet, ambulating, pain controlled Objective Data Objective Data Vital Signs: Vital Signs Temp Pulse Resp BP Pulse Ox O2 Del Method 98.3 F 69 16 107/61 96 Room Air 08/14/24 04:20 08/14/24 04:20 08/14/24 04:20 08/14/24 04:20 08/14/24 04:20 08/14/24 07:39 Oxygen Delivery Method Room Air Weight: 139 lb Body Mass Index (BMI) 23.8 Intake & Output: Intake and Output for Last 24 Hours 08/12/24 08/13/24 08/14/24 23:59 23:59 23:59 Intake Total 1309.30 / 1309.30 823.33 / 823.33 Balance 1309.30 / 1309.30 823.33 / 823.33 Lab / Micro Data 08/14/24 05:25 08/14/24 05:25 Labs: Laboratory Results - last 24 hr 08/14/24 05:25: WBC 10.8, RBC 4.08 L, Hgb 12.0, Hct 36.8 L, MCV 90.2, MCH 29.4, MCHC 32.6, RDW Std Deviation 40.8, RDW Coeff of Jody 12.4, Plt Count 293, MPV 10.5, Immature Gran % (Auto) 0.500, Neut % (Auto) 87.4 H, Lymph % (Auto) 8.2 L, Hawkins % (Auto) 3.8, Eos % (Auto) 0.0, Baso % (Auto) 0.1, Absolute Neuts (auto) 9.4 H, Absolute Lymphs (auto) 0.88, Nucleated RBC % 0, Sodium 141, Potassium 4.2, Chloride 112 H, Carbon Dioxide 22.0, Anion Gap 7, BUN 13, Creatinine 0.73, Estim Creat Clear Calc 74.31, Est GFR (MDRD) Af Amer 106, Est GFR (MDRD) Non-Af 87, BUN/Creatinine Ratio 17.8, Glucose 124 H, Calcium 8.5, Total Bilirubin 0.30, AST 46 H, ALT 72 H, Alkaline Phosphatase 89, Total Protein 6.7, Albumin 3.1 L, Globulin 3.6, Albumin/Globulin Ratio 0.9 Physical Exam Resp normal respiratory effort Cardio regular rate GI GI Narrative: Abdomen: Soft, nondistended, tender near incision's dressed?umbilical dressing change dried blood nothing active?otherwise clean dry and intact, no peritoneal signs Assessment & Plan Assessment/Plan (1) S/P laparoscopic cholecystectomy: PLAN: Plan Patient tolerating diet, pain controlled, incisions dressed with Steri-Strips. Okay to MD home Jenniffer Todd M.D. Pager: [phone] [facility] [address] [place] [address], [address] [place] [address] Office: [phone]
--- NOTE | 2024-08-14 08:58 | CASEMGMT ---
ROSALES CM into pt room, pt sitting up in bed in no distress. Pt does not have a PCP, she states she recently moved to the area. Provided pt with a local healthcare directory. Pt denies any further homegoing needs at this time.
[2024-08-14 09:50] VITALS: BP 134/75; PULSE 65; RESP 16; TEMP 36.6; O2SAT 98
== END 2024-08-14 10:40 | disposition home or self-care (01) ==
LOC: ED 08-13 07:52 → SDC 08-13 08:41 → ACINP 08-13 08:42 → SDC 08-13 09:19 → MS3 08-13 09:20
PROVIDERS: Physician Assistant; Admitting Provider Surgery; Emergency Provider Emergency Medicine; Visit Provider Surgery
PROC: (CPT 47610; principal; 2024-08-13 14:15)
DX: K80.12 Calculus of gallbladder with acute and chronic cholecystitis without obstruction (principal)
CPT/HCPCS: 47563; 00790; 36415; 74177; 74300; 76000; 76705; 80053; 81001; 83690; 84484; 85025; 88304; 88312; 93005; 94668; 96361; 96365; 96375; 96376; 99221; 99284; Q9967; A4216; G0378; J2405